=== PATIENT | male | born 1960 ===

== ENCOUNTER 2022-01-11 08:38 | Emergency (ER) | payer OTHER ==
[2022-01-11] MEDS: Sodium Chloride 0.9% 10 ML Syringe FLUSH PRN ×2 (09:41→10:21)
[2022-01-11] MEDS ORDERED: Iopamidol 612 MG/ML 100 ML Bottle IVPUSH ONE (10:15)
[2022-01-11] MEDS ORDERED: Iopamidol 612 MG/ML 50 ML SDV IVPUSH ONE (10:15)
[2022-01-11] MEDS ORDERED: Sodium Chloride 0.9% 100 ML IV SCH (10:15)
== END 2022-01-11 12:45 | disposition home or self-care (01) ==
LOC: JD.ED 08:38
DX: N13.9 Obstructive and reflux uropathy, unspecified (principal); N28.9 Disorder of kidney and ureter, unspecified; E78.00 Pure hypercholesterolemia, unspecified; E66.9 Obesity, unspecified; Z72.0 Tobacco use; Z79.899 Other long term (current) drug therapy; Z68.27 Body mass index [BMI] 27.0-27.9, adult
CPT/HCPCS: 36415; 51702; 74178; 80053; 81001; 82607; 83690; 85025; 87086; 99284; G0103; J3490; Q9967